=== PATIENT | female | born 1990 | race Caucasian/White ===

== ENCOUNTER 2023-04-19 11:45 | Inpatient (IN) | payer OTHER ==
[~2023-04-19] VITALS: Ht 152.4 cm; Wt 65.8 kg
[~2023-04-19 11:45] MED LIST: LOVENOX30 MG/0.3; PREDNISOLONE5 MG; PREDNISONE2.5 MG
[2023-04-19] MEDS ORDERED: PREDNISO PO (14:22)
[2023-04-19] MEDS ORDERED: [UNRECOGNIZED DRUG - OTHER] PO (14:23)
[2023-04-19] MEDS ORDERED: PLAQUENIL PO (14:23)
[2023-04-19] MEDS ORDERED: PLAVIX75 MG PO (14:24)
[2023-04-19] MEDS ORDERED: CELLCEPT500 MG PO (14:24)
[2023-04-24 07:13] LABS: HEMATOCRIT 34.4 % (36.0-45.00); HEMOGLOBIN 11.8 g/dL (12.0-15.00); MEAN CELL VOLUME 94.3 fL (80.00-100.00); MEAN CORPUSCULAR HEMOGLOBIN 32.2 pg (27.00-32.0); MEAN CORPUSCULAR HGB CONC 34.2 g/dl (32.0-36.0); PLATELET COUNT 248 K/uL (150-450); RED BLOOD COUNT 3.65 M/uL (4.00-6.00); RED CELL DISTRIBUTION WIDTH 13.5 % (11.5-14.5)
== END 2023-04-24 19:07 | disposition home or self-care (01) | DRG 741 ==
LOC: OB/GYN 04-23 11:45 → O/R 04-23 15:11 → OB/GYN 04-24 01:46
PROVIDERS: ADMIT Specialist; ATTEND Specialist
PROC: 0UT04ZZ Resection of Right Ovary, Percutaneous Endoscopic Approach (ICD-10-PCS; 2023-04-23)
PROC: 0UPD4HZ Removal of Contraceptive Device from Uterus and Cervix, Percutaneous Endoscopic Approach (ICD-10-PCS; 2023-04-23)
PROC: 0UT94ZZ Resection of Uterus, Percutaneous Endoscopic Approach (ICD-10-PCS; principal; 2023-04-23 14:00)
PROC: 0UT64ZZ Resection of Left Fallopian Tube, Percutaneous Endoscopic Approach (ICD-10-PCS; 2023-04-23 14:00)
DX: D06.7 Carcinoma in situ of other parts of cervix (principal); Z30.432 Encounter for removal of intrauterine contraceptive device; N73.6 Female pelvic peritoneal adhesions (postinfective); D27.0 Benign neoplasm of right ovary; Z20.822 Contact with and (suspected) exposure to COVID-19

== ENCOUNTER 2024-04-14 19:10 | Emergency (ER) | payer OTHER ==
[~2024-04-14] VITALS: Ht 152.4 cm; Wt 69.9 kg
[~2024-04-14 19:10] MED LIST changes: +CELLCEPT500 MG PO; +PLAQUENIL PO; +PLAVIX75 MG PO; +PREDNISO PO; +[UNRECOGNIZED DRUG - OTHER] PO
[2024-04-14] MEDS ORDERED: CHILDREN'S ASPI81 MG PO (19:31)
[2024-04-14] MEDS ORDERED: KETOROLAC TROMETHAMINE 60 MG VIAL IM ONE (20:00)
[2024-04-14] MEDS ORDERED: TAMSULOSIN HCL 0.4 MG CAP PO ONE (20:00)
[2024-04-14] MEDS ORDERED: CEFTRIAXONE SODIUM 1,000 MG VIAL IM ONE (20:00)
[2024-04-14 21:26] LABS: PH,URINE 5.5 (5.0-8.0); URINE APPEARANCE Clear; URINE BILIRRUBIN Negative (NEGATIVE); URINE BLOOD Negative; URINE COLOR Yellow; URINE GLUCOSE Negative (NEGATIVE); URINE KETONE Negative (NEGATIVE); URINE LEUKOCYTE Trace; URINE NITRATE Negative; URINE PROTEIN Negative (NEGATIVE); URINE UROBILINOGEN 0.2 E.U./dl
[2024-04-14 21:26] LABS: HEMATOCRIT 36.7 % (36.0-45.00); HEMOGLOBIN 12.6 g/dL (12.0-15.00); MEAN CELL VOLUME 93.8 fL (80.00-100.00); MEAN CORPUSCULAR HEMOGLOBIN 32.3 pg (27.00-32.0); MEAN CORPUSCULAR HGB CONC 34.4 g/dl (32.0-36.0); PLATELET COUNT 349 K/uL (150-450); RED BLOOD COUNT 3.91 M/uL (4.00-6.00); RED CELL DISTRIBUTION WIDTH 14.1 % (11.5-14.5)
[2024-04-14 21:30] LABS: URINE BACTERIA 2146.6 uL (0.0-1933); URINE EPITHELIAL CELLS 9.8 uL (0.0-38.8); URINE RBC 4.8 uL (0.0-20.8); URINE WBC 48.2 uL (0.0-23.2)
[2024-04-14 22:00] LABS: ALBUMIN 3.6 gm/dL (3.4-5.0); BILIRUBIN TOTAL 0.18 mg/dL (0.3-1.2); CALCIUM 8.6 mg/dL (8.5-10.1); CREATININE SERUM 0.68 mg/dL (0.55-1.02); GFR 99.04; GLOBULINA 5.2 G/DL (2.4-3.5); POTASSIUM 3.75 mEq/L (3.5-5.1); TOTAL PROTEIN 8.8 gm/dL (6.4-8.2)
[2024-04-14] MEDS ORDERED: PEPCID AC20 MG PO (23:28)
[2024-04-14] MEDS ORDERED: CIPRO500 MG PO (23:28)
== END 2024-04-14 23:34 | disposition home or self-care (01) ==
LOC: ER 19:12
PROVIDERS: General Practice
DX: N30.90 Cystitis, unspecified without hematuria (principal); R10.2 Pelvic and perineal pain
CPT/HCPCS: 36415; 74177; Q9965

== ENCOUNTER 2025-02-09 15:41 | Emergency (ER) | payer OTHER ==
[~2025-02-09] VITALS: Ht 152.4 cm; Wt 68.9 kg
[~2025-02-09 15:41] MED LIST changes: +CHILDREN'S ASPI81 MG PO; +CIPRO500 MG PO; +PEPCID AC20 MG PO
[2025-02-09] MEDS ORDERED: MILLIPRED5 MG (15:51)
[2025-02-09] MEDS ORDERED: VALTREX1000 MG PO (15:52)
[2025-02-09] MEDS ORDERED: HYDROXYCHLOROQ200 MG PO (15:53)
[2025-02-09 16:48] LABS: BASO % 0.4 % (0.1-1.2); EOS # 0.04 (0.04-0.54); EOS % 0.6 % (0.7-7.0); LYMPH # 1.32 (1.18-3.74); LYMPH % 19.6 % (19.3-53.1); MEAN PLATELET VOLUME 9.90 fl (9.4-12.4); MONO # 0.60 (0.24-0.82); MONO % 8.9 % (4.7-12.5); NEUT # 4.64 (1.56-6.13); NEUT % 69.2 % (34.0-71.1); RED CELL DISTRIBUTION WIDTH 14.0 % (11.6-14.4)
[2025-02-09 17:06] LABS: COVID-19 AG POSITIVE (NEGATIVE)
[2025-02-09 17:21] LABS: BUN CREA RATIO 12.0 (7.0-25.0); CREATININE SERUM 0.9 mg/dL (0.55-1.02); GFR 71.25; GLUCOSE FASTING 99.0 mg/dL (65-100); OSMOLALITY SERUM 283.0 MOSM/KG (275-295)
== END 2025-02-09 19:27 | disposition home or self-care (01) ==
LOC: ER 15:41
PROVIDERS: Emergency Medicine
DX: U07.1 COVID-19 (principal); L93.0 Discoid lupus erythematosus; Z86.73 Personal history of transient ischemic attack (TIA), and cerebral infarction without residual deficits

== ENCOUNTER 2025-03-08 11:18 | Emergency (ER) | payer OTHER ==
[~2025-03-08] VITALS: Ht 152.4 cm; Wt 68.9 kg
[~2025-03-08 11:18] MED LIST changes: +HYDROXYCHLOROQ200 MG PO; +MILLIPRED5 MG; +VALTREX1000 MG PO
== END 2025-03-08 13:26 | disposition home or self-care (01) ==
LOC: ER 11:18
DX: H11.31 Conjunctival hemorrhage, right eye (principal)